=== PATIENT | female | born 1995 ===

== ENCOUNTER 2017-01-15 08:47 | Inpatient (IN) | payer MEDICAID ==
[2016-09-15 09:54] VITALS: BMI 28.6
[2017-01-16] MEDS ORDERED: Lactated Ringer's 1,000 ML IV SCH (10:00)
[2017-01-16 10:24] LABS: BASO % 0.3 % (0.0-2.0); EOS % 0.5 % (0.0-4.0); HEMATOCRIT 34.5 % (34.0-47.0); LYMPH # 1.5 K/uL (1.0-4.3); LYMPH % 18.9 % (20.0-40.0); MEAN CORPUSCULAR HEMOGLOBIN 25.4 pg (27.0-31.0); MEAN CORPUSCULAR HGB CONC 33.3 g/dL (33.0-37.0); MEAN PLATELET VOLUME 9.6 fL (7.2-11.7); MONO # 0.8 K/uL (0.0-0.8); MONO % 10.2 % (0.0-10.0); NRBC % 0.1 % (0.0-2.0); RED CELL DISTRIBUTION WIDTH 16.5 % (11.5-14.5); WHITE BLOOD COUNT 7.8 K/uL (4.8-10.8)
[2017-01-16 10:25] LABS: MEAN CELL VOLUME 76.3 fL (81.0-99.0)
[2017-01-16 10:41] LABS: CHLORIDE 107 mmol/L (98-107); POTASSIUM 3.4 mmol/L (3.6-5.2); SODIUM 135 mmol/L (132-148)
[2017-01-16 10:44] LABS: ALB/GLOB RATIO 0.9 (1.0-2.1); ALKALINE PHOSPHATASE 248 U/L (38-126); ALT/SGPT 32 U/L (9-52); AST/SGOT 20 U/L (14-36); BILIRUBIN,TOTAL 0.4 mg/dL (0.2-1.3); BLOOD UREA NITROGEN 4 mg/dL (7-17); CARBON DIOXIDE 17 mmol/L (22-30); GFR AFRICAN-AMERICAN > 60; GLUCOSE,RANDOM 97 mg/dL (65-105); TOTAL PROTEIN 6.8 g/dL (6.3-8.3)
[2017-01-16 10:45] LABS: CALCIUM 8.5 mg/dl (8.6-10.4)
[2017-01-16 11:12] LABS: RBC URINE 1 /hpf (0-3); URINE BACTERIA FEW (<OCC); URINE BILIRUBIN NEGATIVE (NEGATIVE); URINE BLOOD NEGATIVE (NEGATIVE); URINE COLOR Yellow (YELLOW); URINE GLUCOSE (UA) NORMAL (Normal); URINE KETONE NEGATIVE (NEGATIVE); URINE LEUKOCYTE ESTERASE 2+ Leu/uL (Negative); URINE PROTEIN NEGATIVE (NEGATIVE); URINE UROBILINOGEN NORMAL mg/dL (0.2-1.0)
[2017-01-16 11:14] LABS: WBC URINE 3 /hpf (0-5)
[2017-01-16] MEDS ORDERED: Dextrose 5%/Lactated Ringer's 500 ML IV SCH (15:30)
[2017-01-16] MEDS ORDERED: Nalbuphine 20 mg/ml Inj (1 ml) ONE (16:05)
[2017-01-16] MEDS ORDERED: Nalbuphine 20 mg/ml Inj (1 ml) IVP ONE (16:15)
[2017-01-16] MEDS ORDERED: Bupivacaine HCl 0.25% PF (10 ml) Inj ONE (18:04)
[2017-01-16] MEDS ORDERED: Bupivacaine 0.125%/FentaNYL 200 ML EPI ONE (18:04)
--- NOTE | 2017-01-16 20:49 | OBADHP ---
Datetime: 01/16/2017 13:45 Weight - Estimated: 3200 Presentation-Admit: Vertex Contraction Comments Provider: irregular Gestation - Est Wks by US: 41.0 Vital Signs Provider: Reviewed; Within Normal Limits FHR Category Provider Fetus A: Category I Dilatation, Provider: ft Effacement, Provider: 50 Station, Provider: -3 Datetime: 01/16/2017 09:58 Admit Comment, IP Provider: chief complaint-post term ; induction of labor HPI 21 y/o at 41 wga here for induction of labor secondary to post dates Prenata;l course teen PMH denies PSH denies OBGYN HX Social hx denies tobacco,alcohol or illicit drug use Exam see exam section A/P 21 y/o at 41 wga here for induction of labor due to postdates -admit -see orders Pelvic Type - PN: Adequate Extremities - PN: Normal Abdomen - PN: Normal Back - PN: Normal Lungs - PN: Normal Heart - PN: Normal General - PN: Normal IP Hx Assessment: The History has been Reviewed and is Current IP Chief Complaint: Scheduled induction of labor Genitourinary Exam: Normal DTRs - PN: Normal EGA AdmitDate IP: 41.0 IP Adm Impression: Postterm, intrauterine IP Admit Plan: Admit to unit
--- NOTE | 2017-01-16 20:49 | OBPN ---
Datetime: 01/16/2017 13:45 IP Progress Impression: Reassuring heart rate IP Progress Plan: Cervical Ripening Contraction Comments Provider: irregular Gestation - Est Wks by US: 41.0 Weight - Estimated: 3200 Presentation-Admit: Vertex IP Progress Note Comment: S-patient denies any complaints o-vss afebrile FHT cat1 Doran irregular ctx sve ft/50/-3; adequate pelvis; vertex PLna-cervidil placed Vital Signs Provider: Reviewed; Within Normal Limits FHR Category Provider Fetus A: Category I Dilatation, Provider: ft Effacement, Provider: 50 Station, Provider: -3
--- NOTE | 2017-01-17 01:27 | OBPN ---
Datetime: 01/17/2017 01:22 IP Progress Impression: Reassuring heart rate IP Progress Plan: Continue present management Contraction Comments Provider: irregular FHR - Baseline A Provider: 150 IP Progress Note Comment: S-patient states that she feels some pressure O-VSS Afebrile FHT 150s, min-mod tera, +accels, occ variable Pluckemin irregular ctx sve 3/80/-1 A/P Patient being induced for postdates -cervidil removed -epidural topoff -start pitocin after topoff Vital Signs Provider: Reviewed; Within Normal Limits NICHD Accel Fetus A IP Provider: 15X15 NICHD Variability Prov Fetus A: Moderate 6-25bpm Dilatation, Provider: 3 Effacement, Provider: 80 Station, Provider: -1 NICHD Decel Fetus A IP Provider: None; Variable
[2017-01-17] MEDS ORDERED: Bupivacaine HCl 0.25% PF (10 ml) Inj ONE ×2 (01:39→07:56)
[2017-01-17] MEDS ORDERED: Oxytocin 30 UNIT 30 UNITS/500 ML BAG IV PRN (04:00)
[2017-01-17] MEDS ORDERED: Oxytocin 30 UNIT 30 UNITS/500 ML BAG IV ONE (04:00)
[2017-01-17] MEDS ORDERED: Dextrose 5%/Lactated Ringer's 1,000 ML IV SCH (07:15)
--- NOTE | 2017-01-17 08:35 | OBPN ---
Datetime: 01/17/2017 08:09 IP Progress Plan Other: SROM IP Procedures: Sterile Vag Exam IP Progress Plan: Continue present management; Augmentation; Anesthesia consult; Anticipate Vaginal Delivery Membranes, Provider: Ruptured Amniotic Fluid Color, Provider: Bloody Contraction Comments Provider: 2-3 FHR - Baseline A Provider: 150 Gestation - Est Wks by US: 41w 1d Presentation-Admit: Vertex IP Progress Note Comment: Patient received in LDR#4 - reports returning increasing intensitity of co ntractions - S/P epidural. Cervical exam: during exam, spontaneous ROM occurred - blood -tinged. Pitocon = 8 mUnits Assessment: 21 y.o. P0, 41w 1d, S/P cervidil; making adequate progress in Stage 1 of labor. FHR t racing c/w labor. Category 1 tracing. Clinically stable. Plan: 1) Anesthesia consult 2) Anticipate vaginal delivery NICHD Accel Fetus A IP Provider: 10X10 FHR Category Provider Fetus A: Category I Dilatation, Provider: 8 Effacement, Provider: 90 Station, Provider: -2 NICHD Decel Fetus A IP Provider: Early
[2017-01-17] MEDS ORDERED: Oxytocin 10 Units/ml Inj ONE (14:44)
[2017-01-17] MEDS ORDERED: Lidocaine 2% Inj (20ml) ONE ×2 (14:46→14:52)
[2017-01-17] MEDS ORDERED: Benzocaine/Menthol 20%-0.5% Topical Spray (60 ml) TOP PRN (15:31)
[2017-01-17] MEDS ORDERED: Oxycodone/Acetaminophen 5/325 mg Tab PO PRN (15:33)
[2017-01-17] MEDS: Oxycodone/Acetaminophen 5/325 mg Tab PO PRN (16:36)
[2017-01-17] MEDS ORDERED: Oxycodone/Acetaminophen 5/325 mg Tab ONE (16:39)
[2017-01-17] MEDS ORDERED: Potassium Chloride 20 mEq ER Tab PO ONE (19:00)
[2017-01-17 19:23] LABS: BASO % 0.1 % (0.0-2.0); HEMATOCRIT 24.7 % (34.0-47.0); LYMPH # 0.8 K/uL (1.0-4.3); LYMPH % 4.1 % (20.0-40.0); MEAN CELL VOLUME 76.8 fL (81.0-99.0); MEAN CORPUSCULAR HEMOGLOBIN 25.3 pg (27.0-31.0); MEAN PLATELET VOLUME 9.4 fL (7.2-11.7); MONO # 1.3 K/uL (0.0-0.8); MONO % 6.7 % (0.0-10.0); PLATELET COUNT 139 K/uL (130-400); RED CELL DISTRIBUTION WIDTH 16.3 % (11.5-14.5)
[2017-01-17 19:26] LABS: WHITE BLOOD COUNT 19.6 K/uL (4.8-10.8)
--- NOTE | 2017-01-17 20:05 | OBDS ---
DELIVERY PERSONNEL Delivery Doctor: Jessica Son MD [employer] Operator: Willie Bliss RN Anesthesiologist: tawanda MATERNAL INFORMATION Delivery Anesthesia: Epidural Medications in Delivery: pitocin 40 Estimated Blood Loss (ml): 1500 Placenta Cultured: Yes Maternal Complications: None Provider Comments: G1 now P1 delivered a viable female via over 2nd degree vaginal lacera tion with Left sulcus tear at 14:13pm. Transverse perineii muscle was intact. The 's head was d elivered in a controlled manner. No nuchal was noted. The infant's shoulders were delivered atraumati chan. Infant's body was delivered without difficulty. Thick meconium liquor noted after delivery of body. Infant's mouth and nose were suctioned with bulb on the perineum. The cord was clamped and cut. Cord gas and cord blood were collected. The infant weighed [id number] with 'S 8 and 8. Mom and bab y are recovering in stable condition. All instrument and sponge counts were correct. Attending: Dr Son Resident: Bridget Rucker PGY-1 Attending Note: Present at and agree with documentaiton of delivery as above. Upon delivery of placenta, significa nt blood loss suspicious for possible placental abruption. Mother had the opportunity to vickers with infant, prior to be transferred to [facility]. Cord pH results not available at time of signing of this record. Laboratory personnel investigatin g LABOR SUMMARY EDC: 01/09/2017 00:00 No. Babies in Womb: 1 Attempted: No Labor Anesthesia: Epidural LABOR INFORMATION Cervical Ripening Agents: Cervidil (Annotations: cervidil removed by Dr. Michelle) Oxytocin: Induction Group B Beta Strep: Negative (Annotations: 12/13/16) Steroids Given: None Reason Steroids Not Administered: Not Applicable MEMBRANES Membranes Rupture Method: Spontaneous Rupture of Membranes: 01/17/2017 08:02 Length of Rupture (hrs): 6.18 Amniotic Fluid Color: Clear Amniotic Fluid Amount: Moderate Amniotic Fluid Odor: Normal STAGES OF LABOR Stage 3 hrs: 0 Stage 3 min: 33 VAGINAL DELIVERY Laceration Extension: Second Degree Laceration Type: Vaginal Other Laceration: left sulcus tear Laceration Repair Note: 1-0 vicryl used to reapproximate capsule of transverse perineii, 3 interupte d stitches 2-0 chromic (x2) on vaginal mucosa, running interlocking 3-0 chromic on skin, subcuticular Patient tolerated procedure well. Hemostasis assured. Initial Vag Sponge Count: 20 Final Vag Sponge Count: 20 Initial Vag Sharps Count: 4 Final Vag Sharps Count: 4 Sponge Count Correct: Yes Sharps Count Correct: Yes Count Comment: Correct BABY A INFORMATION Delivery Date/Time: 01/17/2017 14:13 Method of Delivery: Vaginal Born in Route : No : N/A Forceps: N/A Vacuum Extraction: N/A Shoulder Dystocia : No SHOULDER DYSTOCIA BABY A Delivery Date/Time: 01/17/2017 14:13 PRESENTATION/POSITION BABY A Presentation: Cephalic Cephalic Presentation: Vertex Breech Presentation: N/A PLACENTA INFORMATION BABY A Placenta Delivery Time : 01/17/2017 14:46 Placenta Method of Delivery: Spontaneous Placenta Status: Delivered SCORES BABY A Heart Rate 1 min: >100 bpm Resp Effort 1 min: Good Cry Reflex Irritability 1 min: Cough or Sneeze or Pulls Away Muscle Tone 1 min: Some Flexion of Extremities Color 1 min: Body Sun[place], Extremities Blue Resuscitation Effort 1 min: Tactile Stimulation; Oxygen SCORE 1 MIN: 8 Heart Rate 5 min: >100 bpm Resp Effort 5 min: Good Cry Reflex Irritability 5 min: Cough or Sneeze or Pulls Away Muscle Tone 5 min: Some Flexion of Extremities Color 5 min: Body Sunsites, Extremities Blue SCORE 5 MIN: 8 INFORMATION BABY A Gestational Age at Delivery: 41.0 Gestational Status: Term Outcome : Liveborn Condition : Stable Sex: Female IDENTIFICATION/MEDS BABY A ID Band Number: [id number] ID Band Location: Left Leg; Left Arm Sensor Applied: Yes Sensor Number: [id number] Sensor Location : Cord Clamp WEIGHT/LENGTH BABY A Birthweight (gms): 4130 Weight (lb): 9 Infant Weight (oz): 2 Infant Length Inches: 21.25 Length cms: 54.0 CORD INFORMATION BABY A No. Cord Vessels: 3 Nuchal Cord : N/A Cord Blood Taken: Yes Infant Suction: Mouth; Nose ASSESSMENT BABY A Complications: None Physical Findings at Delivery: Within Normal Limits Infant Respirations: Grunting Physical Therapy Assistant/ALS Called : Yes Infant Care By: dr rivera Transferred To: [facility]
[2017-01-17 20:14] LABS: NEUTROPHIL 80 % (50-75); TOTAL CELLS COUNTED 100
[2017-01-17 20:15] LABS: LARGE PLATELETS PRESENT
--- NOTE | 2017-01-17 21:46 | OBDS ---
DELIVERY PERSONNEL Delivery Doctor: Jessica Son MD Field Assembly Supervisor: Willie Bliss RN Anesthesiologist: tawanda MATERNAL INFORMATION Delivery Anesthesia: Epidural Medications in Delivery: pitocin 40 Estimated Blood Loss (ml): 1500 Placenta Cultured: Yes Maternal Complications: None Provider Comments: G1 now P1 delivered a viable female via over 2nd degree vaginal lacera tion with Left sulcus tear at 14:13pm. Transverse perineii muscle was intact. The 's head was d elivered in a controlled manner. No nuchal was noted. The infant's shoulders were delivered atraumati chan. Infant's body was delivered without difficulty. Thick meconium liquor noted after delivery of body. Infant's mouth and nose were suctioned with bulb on the perineum. The cord was clamped and cut. Cord gas and cord blood were collected. The infant weighed [id number] with 'S 8 and 8. Mom and bab y are recovering in stable condition. All instrument and sponge counts were correct. Attending: Dr Son Resident: Bridget Rucker PGY-1 Attending Note: Present at and agree with documentaiton of delivery as above. Upon delivery of placenta, significa nt blood loss suspicious for possible placental abruption. Mother had the opportunity to vickers with infant, prior to be transferred to [facility]. Cord pH results not available at time of signing of this record. Laboratory personnel ez tatum Addendum: 3 hours Cord pH 7.18; base excess-11.6 LABOR SUMMARY EDC: 01/09/2017 00:00 No. Babies in Womb: 1 Attempted: No Labor Anesthesia: Epidural LABOR INFORMATION Cervical Ripening Agents: Cervidil (Annotations: cervidil removed by Dr. Michelle) Cervical Ripening Agents: Cervidil (Annotations: Cervidil 10mg intravaginally administered by Dr.Man espinosa) Oxytocin: Induction Group B Beta Strep: Negative (Annotations: 12/13/16) Steroids Given: None Reason Steroids Not Administered: Not Applicable MEMBRANES Membranes Rupture Method: Spontaneous Rupture of Membranes: 01/17/2017 08:02 Length of Rupture (hrs): 6.18 Amniotic Fluid Color: Clear Amniotic Fluid Amount: Moderate Amniotic Fluid Odor: Normal STAGES OF LABOR Stage 3 hrs: 0 Stage 3 min: 33 VAGINAL DELIVERY Laceration Extension: Second Degree Laceration Type: Vaginal Other Laceration: left sulcus tear Laceration Repair Note: 1-0 vicryl used to reapproximate capsule of transverse perineii, 3 interupte d stitches 2-0 chromic (x2) on vaginal mucosa, running interlocking 3-0 chromic on skin, subcuticular Patient tolerated procedure well. Hemostasis assured. Initial Vag Sponge Count: 20 Final Vag Sponge Count: 20 Initial Vag Sharps Count: 4 Final Vag Sharps Count: 4 Sponge Count Correct: Yes Sharps Count Correct: Yes Count Comment: Correct BABY A INFORMATION Infant Delivery Date/Time: 01/17/2017 14:13 Method of Delivery: Vaginal Born in Route : No : N/A Forceps: N/A Vacuum Extraction: N/A Shoulder Dystocia : No SHOULDER DYSTOCIA BABY A Infant Delivery Date/Time: 01/17/2017 14:13 PRESENTATION/POSITION BABY A Presentation: Cephalic Cephalic Presentation: Vertex Breech Presentation: N/A PLACENTA INFORMATION BABY A Placenta Delivery Time : 01/17/2017 14:46 Placenta Method of Delivery: Spontaneous Placenta Status: Delivered SCORES BABY A Heart Rate 1 min: >100 bpm Resp Effort 1 min: Good Cry Reflex Irritability 1 min: Cough or Sneeze or Pulls Away Muscle Tone 1 min: Some Flexion of Extremities Color 1 min: Body [place], Extremities Blue Resuscitation Effort 1 min: Tactile Stimulation; Oxygen SCORE 1 MIN: 8 Heart Rate 5 min: >100 bpm Resp Effort 5 min: Good Cry Reflex Irritability 5 min: Cough or Sneeze or Pulls Away Muscle Tone 5 min: Some Flexion of Extremities Color 5 min: Body [place], Extremities Blue SCORE 5 MIN: 8 INFORMATION BABY A Gestational Age at Delivery: 41.0 Gestational Status: Term Outcome : Liveborn Condition : Stable Infant Sex: Female IDENTIFICATION/MEDS BABY A ID Band Number: [id number] ID Band Location: Left Leg; Left Arm Sensor Applied: Yes Sensor Number: [id number] Sensor Location : Cord Clamp WEIGHT/LENGTH BABY A Birthweight (gms): 4130 Infant Weight (lb): 9 Weight (oz): 2 Length Inches: 21.25 Infant Length cms: 54.0 CORD INFORMATION BABY A No. Cord Vessels: 3 Nuchal Cord : N/A Cord Blood Taken: Yes Infant Suction: Mouth; Nose ASSESSMENT BABY A Complications: None Physical Findings at Delivery: Within Normal Limits Infant Respirations: Grunting Lead Advisor/ALS Called : Yes Care By: dr rivera Transferred To: Nursery
[2017-01-18 08:26] LABS: BASO # 0.1 K/uL (0.0-0.2); BASO % 0.3 % (0.0-2.0); EOS % 0.3 % (0.0-4.0); LYMPH # 2.4 K/uL (1.0-4.3); LYMPH % 13.2 % (20.0-40.0); MEAN CELL VOLUME 76.3 fL (81.0-99.0); MEAN CORPUSCULAR HEMOGLOBIN 24.8 pg (27.0-31.0); MEAN CORPUSCULAR HGB CONC 32.6 g/dL (33.0-37.0); MEAN PLATELET VOLUME 9.6 fL (7.2-11.7); MONO # 1.4 K/uL (0.0-0.8); MONO % 7.9 % (0.0-10.0); RED CELL DISTRIBUTION WIDTH 15.9 % (11.5-14.5); WHITE BLOOD COUNT 17.9 K/uL (4.8-10.8)
[2017-01-18 08:51] LABS: CHLORIDE 107 mmol/L (98-107); SODIUM 133 mmol/L (132-148)
[2017-01-18 08:52] LABS: POTASSIUM 3.9 mmol/L (3.6-5.2)
[2017-01-18 08:54] LABS: ALKALINE PHOSPHATASE 183 U/L (38-126); ALT/SGPT 29 U/L (9-52); AST/SGOT 29 U/L (14-36); BILIRUBIN,TOTAL 0.6 mg/dL (0.2-1.3); BLOOD UREA NITROGEN 5 mg/dL (7-17); CALCIUM 7.9 mg/dl (8.6-10.4); CARBON DIOXIDE 17 mmol/L (22-30); GFR AFRICAN-AMERICAN > 60; GLUCOSE,RANDOM 90 mg/dL (65-105); TOTAL PROTEIN 4.6 g/dL (6.3-8.3)
[2017-01-18 15:01] LABS: BASO % 0.1 % (0.0-2.0); EOS # 0.1 K/uL (0.0-0.7); EOS % 0.4 % (0.0-4.0); HEMATOCRIT 21.4 % (34.0-47.0); MEAN CELL VOLUME 76.4 fL (81.0-99.0); MEAN CORPUSCULAR HEMOGLOBIN 25.1 pg (27.0-31.0); MEAN CORPUSCULAR HGB CONC 32.9 g/dL (33.0-37.0); MEAN PLATELET VOLUME 9.8 fL (7.2-11.7); MONO # 1.3 K/uL (0.0-0.8); MONO % 8.2 % (0.0-10.0); RED CELL DISTRIBUTION WIDTH 16.3 % (11.5-14.5); WHITE BLOOD COUNT 15.3 K/uL (4.8-10.8)
[2017-01-18 16:01] VITALS: PULSE 100
--- NOTE | 2017-01-18 21:01 | OBPPN ---
Datetime: 01/18/2017 07:09 PP Pain Prov: Within normal limits PP Nausea Prov: Denies PP Flatus Prov: Yes PP BM Prov: No PP Lungs Prov: Normal PP Abdomen/Uterus Prov: Normal PP Lochia Prov: Normal PP CVA Tenderness Prov: Normal PP Extremities Prov: Normal PP C/S Incision Prov: Not Applicable PP Progress Prov: Normal PP Impression Prov: Normal progression PP Plan Prov: Continue present management PP Progress Note Prov: Patient seen and examined at bedside. Per nursing no acute events overnight. Patient is doing well, pain is controlled. Lochia is mild. Patient is ambulating and tolerating diet. Urinating without difficulty. Passing flatus, no BM. Denies headache, dizziness, cp, palpitations, s ob, urinary symptoms. Patient is breast pumping. VS: BP 103/56 HR 104 Temp 98.1 Gen: AAOx3 CV: Tachycardic, regular rhythm Lungs: CTA B/L Abd: Soft, appropriately tender, fundus firm above umbilicus Ext: No clubbing, cyanosis, edema; no calf tenderness Labs: 7.8>11.5/34.5<149 19.6>8.2/24.2<139 F/U am CBC O positive Rubella Immune A/P: 21 yo at 41w1d s/p with 2nd degree vaginal laceration with posterior L sulcus te ar PPD#1 1. Stable, afebrile 2. Pain control - tylenol and motrin prn 3. F/U AM CBC 4. Acute Blood loss anemia - Ferrous sulfate 325mg TID 5. Hypokalemia K+ 3.4 on admission, potassium repleted, f/u am CMP 6. Encourage ambulation and hydration 7. Encourage breast pumping 8. Continue routine post care 9. Anticipate d/c home tomorrow 10. Plan d/w attending Bridget Rucker DO, PGY-1 [place],agree with resident exam, assessment and plan Vital Signs Provider PP: Reviewed Vital Signs Provider Details PP: heart rate elevated
[2017-01-18] MEDS: Oxycodone/Acetaminophen 5/325 mg Tab PO PRN (22:13)
[2017-01-19 07:38] LABS: BASO % 0.3 % (0.0-2.0); EOS # 0.1 K/uL (0.0-0.7); EOS % 1.2 % (0.0-4.0); HEMATOCRIT 22.6 % (34.0-47.0); LYMPH # 2.6 K/uL (1.0-4.3); LYMPH % 20.8 % (20.0-40.0); MEAN CELL VOLUME 77.2 fL (81.0-99.0); MEAN CORPUSCULAR HGB CONC 32.4 g/dL (33.0-37.0); MEAN PLATELET VOLUME 9.8 fL (7.2-11.7); MONO % 8.2 % (0.0-10.0); RED CELL DISTRIBUTION WIDTH 16.5 % (11.5-14.5); WHITE BLOOD COUNT 12.6 K/uL (4.8-10.8)
[2017-01-19] MEDS ORDERED: Influenza Vaccine 60 mcg/0.5 mL SYR (4YR UP) IM ONE ×2 (08:05→09:30)
[2017-01-19 08:40] VITALS: RESP 18
[2017-01-19] MEDS: Oxycodone/Acetaminophen 5/325 mg Tab PO PRN (17:24)
[2017-01-19 21:44] VITALS: BP 117/72; TEMP 98; O2SAT 100
== END 2017-01-19 17:43 | disposition home or self-care (01) | DRG 372 ==
LOC: C.4D 01-16 09:10 → C.4M 01-17 16:15
PROVIDERS: ADMIT Student in an Organized Health Care Education/Training Program; ATTEND Student in an Organized Health Care Education/Training Program
PROC: 3E0P7VZ Introduction of Hormone into Female Reproductive, Via Natural or Artificial Opening (ICD-10-PCS; principal; 2017-01-16)
PROC: 10E0XZZ Delivery of Products of Conception, External Approach (ICD-10-PCS; 2017-01-17)
PROC: 0KQM0ZZ Repair Perineum Muscle, Open Approach (ICD-10-PCS; 2017-01-17)
DX: O48.0 Post-term pregnancy (principal); O45.93 Premature separation of placenta, unspecified, third trimester; D62 Acute posthemorrhagic anemia; E87.6 Hypokalemia; O99.02 Anemia complicating childbirth; Z37.0 Single live birth; O70.1 Second degree perineal laceration during delivery; O77.0 Labor and delivery complicated by meconium in amniotic fluid; O99.284 Endocrine, nutritional and metabolic diseases complicating childbirth; Z3A.41 41 weeks gestation of pregnancy

== ENCOUNTER 2017-09-21 14:34 | Emergency (ER) | payer MEDICAID, OTHER ==
[2017-09-21 14:35] VITALS: BMI 28.6
[2017-09-21 14:46] VITALS: TEMP 97.8
--- NOTE | 2017-09-21 15:40 | C.PDOC ---
History Of Present Illness Patient is a 21 y/o female patient presenting to the ER complaining of intermittent headache for the past 3 days. headache lasts about 30 minutes, comes several times a day with gradual onset. Associated symptoms to the headache (pain on top and front of head) include stiffness, weakness and tremors in her hands with a transient backward type positioning of arms, tremors and one episode of vomiting yesterday. Patient denies any fever, nausea , trauma/injuries, visual changes, or stiff neck. pt has no headache at this times, last was earlier today. headaches resolves spontaneously. Time Seen by Provider: 09/21/17 14:49 Chief Complaint (Nursing): Headache History Per: Patient History/Exam Limitations: no limitations Onset/Duration Of Symptoms: Days Current Symptoms Are (Timing): Still Present Associated Symptoms: Vomiting, Extremity Weakness. denies: Photophobia, Nausea Past Medical History Reviewed: Historical Data, Nursing Documentation, Vital Signs Vital Signs: Last Vital Signs Temp 97.8 F 09/21/17 14:42 Pulse 78 09/21/17 18:03 Resp 16 09/21/17 18:03 BP 123/68 09/21/17 18:03 Pulse Ox 97 09/23/17 22:23 - Medical History PMH: No Chronic Diseases Denies: Depression, Diabetes, HTN Surgical History: No Surg Hx - [facility] Procedures (01/16/17) DELIVERY OF PRODUCTS OF CONCEPTION, EXTERNAL APPROACH (01/16/17) INTRODUCTION OF SERUM/TOX/VACCINE INTO MUSCLE, PERC APPROACH (01/16/17) REPAIR PERINEUM MUSCLE, OPEN APPROACH (01/16/17) Family History: States: No Known Family Hx - Social History Hx Alcohol Use: No Hx Substance Use: No - Immunization History Hx Tetanus Toxoid Vaccination: No Hx Influenza Vaccination: Yes Hx Pneumococcal Vaccination: No Review Of Systems Constitutional: Negative for: Fever, Chills Eyes: Negative for: Vision Change Gastrointestinal: Positive for: Vomiting. Negative for: Nausea Musculoskeletal: Negative for: Neck Pain Neurological: Positive for: Weakness, Headache Physical Exam - Physical Exam Appears: Non-toxic, No Acute Distress Skin: Normal Color, Warm, Dry Head: Atraumatic, Normacephalic Eye(s): bilateral: Normal Inspection (no nystagmus), EOMI Ear(s): Bilateral: Normal Nose: Normal Oral Mucosa: Moist Tongue: Normal Appearing Lips: Normal Appearing Teeth: Normal Dentition Gingiva: Normal Appearing Throat: Normal, No Erythema, No Exudate Neck: Normal ROM, Supple, Other (no meningeal signs) Chest: Symmetrical Cardiovascular: Rhythm Regular, No Murmur Respiratory: Normal Breath Sounds, No Rales, No Rhonchi, No Wheezing Gastrointestinal/Abdominal: Soft, No Tenderness Extremity: Normal ROM Pulses: Left Radial: Normal, Right Radial: Normal Neurological/Psych: Oriented x3, Normal Speech, Normal Cognition, Normal Cranial Nerves, No Cerebellar Signs, Normal Motor, Normal Sensation, Other ( normal finger-nose, minh, steady gait, able to toe, heel walk. ) Gait: Steady ED Course And Treatment - Laboratory Results Result Diagrams: 09/21/17 15:57 09/21/17 15:57 Urine POC: Negative O2 Sat by Pulse Oximetry: 97 (RA) - CT Scan/US Head Other Rad Studies (CT/US): Read By Radiologist, Radiology Report Reviewed CT/US Interpretation: FINDINGS: HEMORRHAGE: No intracranial hemorrhage seen. BRAIN: No mass effect or edema. No atrophy or chronic microvascular ischemic changes. VENTRICLES: Unremarkable. No hydrocephalus. CALVARIUM: Intact. PARANASAL SINUSES: Small amount of secretions in the right sphenoid sinus. Remainder of the visualized paranasal sinuses are clear. MASTOID AIR CELLS: Visualized mastoid air cells are clear. OTHER FINDINGS: None. IMPRESSION: No mass, hemorrhage, or acute infarct identified. Mild right sphenoid sinus disease as above. Correlate clinically for acute sinusitis. Progress Note: Urine Preg Test ordered. Medical Decision Making Medical Decision Making: pt with intermittent gradual onset headache with unusual associated arm stiffness for 3 days, labs normal, no acute findings on ct, pt without headache at this time. d/c home with clinic and neuro f/u. pt advised to keep diary when she gets headaches. pt agrees with plan. Disposition Counseled Patient/Family Regarding: Studies Performed, Diagnosis, Need For Followup, Rx Given - Disposition Referrals: [facility] [Outside] Phillip Rutledge MD [Staff Provider] - Disposition: HOME/ ROUTINE Disposition Time: 17:53 Condition: GOOD Additional Instructions: Jw el seguimiento en la clnica mdica lo antes posible y tambin con el Dr. Rutledge (neurlogo). Lleve un diario de cundo tiene shannan de alessandro, incluyendo cunto tiempo saucedo ms, circunstancias que ocurren alrededor de un dolor de alessandro, etc. [place] Tylenol para el dolor si es necesario. Regrese a la alethea de emergencias por cualquier empeoramiento de los sntomas. Instructions: Headache, Adult (DC) Forms: Gen Discharge Inst [place], [employer] ([place]) Print Language: GERMAN - Clinical Impression Clinical Impression: Headache - PA / FACILITY ENGINEER / Resident Statement MD/DO has reviewed & agrees with the documentation as recorded. - Scribe Statement The provider has reviewed the documentation as recorded by the Becky Randolph All medical record entries made by the Nikkieibe were at my direction and personally dictated by me. I have reviewed the chart and agree that the record accurately reflects my personal performance of the history, physical exam, medical decision making, and the department course for this patient. I have also personally directed, reviewed, and agree with the discharge instructions and disposition.
[2017-09-21 16:02] LABS: BASO % 0.5 % (0.0-2.0); EOS % 0.2 % (0.0-4.0); HEMOGLOBIN 12.7 g/dL (11.0-16.0); LYMPH # 2.3 K/uL (1.0-4.3); LYMPH % 25.7 % (20.0-40.0); MEAN CORPUSCULAR HEMOGLOBIN 25.7 pg (27.0-31.0); MEAN PLATELET VOLUME 8.9 fL (7.2-11.7); MONO # 0.7 K/uL (0.0-0.8); MONO % 7.5 % (0.0-10.0); NEUT # 5.8 K/uL (1.8-7.0); NEUT % 66.1 % (50.0-75.0); NRBC % 0.1 % (0.0-2.0); RBC 4.93 Mil/uL (3.80-5.20); RED CELL DISTRIBUTION WIDTH 14.8 % (11.5-14.5); WHITE BLOOD COUNT 8.8 K/uL (4.8-10.8)
[2017-09-21 16:13] LABS: ALB/GLOB RATIO 1.3 (1.0-2.1); ALBUMIN 4.7 g/dL (3.5-5.0); ALT/SGPT 36 U/L (9-52); AST/SGOT 27 U/L (14-36); BLOOD UREA NITROGEN 9 mg/dL (7-17); CALCIUM 8.9 mg/dl (8.6-10.4); GFR AFRICAN-AMERICAN > 60; GFR NON-AFRICAN AMERICAN > 60
--- NOTE | 2017-09-21 17:19 | CT ---
PROCEDURE: CT HEAD WITHOUT CONTRAST HISTORY: hadache with arm posturing COMPARISON: None available. TECHNIQUE: Axial computed tomography images were obtained through the head/brain without intravenous contrast. Coronal and sagittal reconstructions were also acquired. Radiation dose: Total exam DLP = 774 mGy-cm. FINDINGS: HEMORRHAGE: No intracranial hemorrhage seen. BRAIN: No mass effect or edema. No atrophy or chronic microvascular ischemic changes. VENTRICLES: Unremarkable. No hydrocephalus. CALVARIUM: Intact PARANASAL SINUSES: Small amount of secretions in the right sphenoid sinus. Remainder of the visualized paranasal sinuses are clear. MASTOID AIR CELLS: Visualized mastoid air cells are clear. OTHER FINDINGS: None. IMPRESSION: No mass, hemorrhage, or acute infarct identified. Mild right sphenoid sinus disease as above. Correlate clinically for acute sinusitis.
[2017-09-21 18:04] VITALS: BP 123/68; PULSE 78; RESP 16
[2017-09-21 22:06] VITALS: O2SAT 97
== END 2017-09-21 18:03 | disposition home or self-care (01) ==
LOC: C.ER 14:34
DX: R51 Headache (principal)

== ENCOUNTER 2017-10-05 14:13 | Inpatient (IN) | payer MEDICAID, OTHER ==
[2017-10-05 14:14] VITALS: BMI 28.6
[2017-10-05 15:08] LABS: BASO % 0.5 % (0.0-2.0); EOS % 0.3 % (0.0-4.0); HEMOGLOBIN 12.6 g/dL (11.0-16.0); LYMPH # 2.2 K/uL (1.0-4.3); LYMPH % 30.8 % (20.0-40.0); MEAN CORPUSCULAR HEMOGLOBIN 26.4 pg (27.0-31.0); MEAN CORPUSCULAR HGB CONC 33.4 g/dL (33.0-37.0); MEAN PLATELET VOLUME 9.2 fL (7.2-11.7); MONO # 0.5 K/uL (0.0-0.8); MONO % 7.3 % (0.0-10.0); NEUT # 4.3 K/uL (1.8-7.0); NEUT % 61.1 % (50.0-75.0); NRBC % 0.1 % (0.0-2.0); RBC 4.76 Mil/uL (3.80-5.20); RED CELL DISTRIBUTION WIDTH 14.8 % (11.5-14.5); WHITE BLOOD COUNT 7.1 K/uL (4.8-10.8)
[2017-10-05 15:22] LABS: ALB/GLOB RATIO 1.5 (1.0-2.1); ALBUMIN 4.7 g/dL (3.5-5.0); ALT/SGPT 33 U/L (9-52); AST/SGOT 30 U/L (14-36); BLOOD UREA NITROGEN 10 mg/dL (7-17); GFR AFRICAN-AMERICAN > 60; GFR NON-AFRICAN AMERICAN > 60
[2017-10-05 15:23] LABS: SQUAMOUS EPITHIAL 1 /hpf (0-5); URINE BACTERIA RARE (<OCC); URINE BILIRUBIN NEGATIVE (NEGATIVE); URINE BLOOD NEGATIVE (NEGATIVE); URINE CLARITY Hazy (Clear); URINE COLOR Yellow (YELLOW); URINE GLUCOSE (UA) NORMAL (Normal); URINE LEUKOCYTE ESTERASE 3+ Leu/uL (Negative); URINE PROTEIN NEGATIVE (NEGATIVE); URINE UROBILINOGEN NORMAL mg/dL (0.2-1.0)
--- NOTE | 2017-10-05 15:30 | C.PDOC ---
History Of Present Illness 21yo female, with no prior psychiatric history, comes to ER from [facility] stating she is scared and she has homicidal ideation. PAtient states 2 weeks ago, her 8 month old baby almost choked on a rubber band and since then, she has had thoughts of hurting her child with a knife. Patient also states she has thoughts of hurting her brother when he visits. She reports feeling lonely as well. Otherwise, patient denies any fever, chills, shortness of breath, chest pain, abdominal pain, and offers no other medical complaints. Time Seen by Provider: 10/05/17 14:26 Chief Complaint (Nursing): Psychiatric Evaluation History Per: Patient History/Exam Limitations: no limitations Onset/Duration Of Symptoms: Days Current Symptoms Are (Timing): Still Present Associated Symptoms: Depression. denies: Suicidal Thoughts Past Medical History Reviewed: Historical Data, Nursing Documentation, Vital Signs Vital Signs: Last Vital Signs Temp 98 F 10/05/17 17:20 Pulse 76 10/05/17 17:20 Resp 18 10/05/17 17:20 BP 126/73 10/05/17 17:20 Pulse Ox 98 10/05/17 18:17 - Medical History PMH: Denies: Depression, Diabetes, HTN Surgical History: No Surg Hx - [facility] Procedures (01/16/17) DELIVERY OF PRODUCTS OF CONCEPTION, EXTERNAL APPROACH (01/16/17) INTRODUCTION OF SERUM/TOX/VACCINE INTO MUSCLE, PERC APPROACH (01/16/17) REPAIR PERINEUM MUSCLE, OPEN APPROACH (01/16/17) Family History: States: No Known Family Hx - Social History Hx Alcohol Use: No Hx Substance Use: No - Immunization History Hx Tetanus Toxoid Vaccination: No Hx Influenza Vaccination: Yes Hx Pneumococcal Vaccination: No Review Of Systems Constitutional: Negative for: Fever, Chills Cardiovascular: Negative for: Chest Pain Respiratory: Negative for: Shortness of Breath Gastrointestinal: Negative for: Abdominal Pain Psych: Positive for: Depression, Other (homicidal ideation) Physical Exam - Physical Exam Appears: Non-toxic, No Acute Distress Skin: Warm, Dry Head: Atraumatic, Normacephalic Eye(s): bilateral: Normal Inspection Neck: Normal ROM, Supple Chest: Symmetrical Cardiovascular: Rhythm Regular Respiratory: Normal Breath Sounds, No Wheezing Gastrointestinal/Abdominal: Soft, No Tenderness, No Guarding, No Rebound Back: No CVA Tenderness Extremity: Normal ROM Neurological/Psych: Oriented x3, Normal Speech, Normal Cognition, Normal Motor, Normal Sensation ED Course And Treatment - Laboratory Results Result Diagrams: 10/05/17 15:04 10/05/17 15:04 O2 Sat by Pulse Oximetry: 98 (RA) Pulse Ox Interpretation: Normal Medical Decision Making Medical Decision Making: Impression: Auditory hallucinations Plan: --Labs --UA --UDS --Crisis evaluation 1646 discussed with crisis. pt to be admitted to Dr Murray. pt's urine with wbc and le, with no symptoms. will obtain urine culture and recommend f/u culture for determination if pt needs antibiotics. 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 - Scribe Statement The provider has reviewed the documentation as recorded by the Becky Arshad Provider Attestation: All medical record entries made by the Becky were at my direction and personally dictated by me. I have reviewed the chart and agree that the record accurately reflects my personal performance of the history, physical exam, medical decision making, and the department course for this patient. I have also personally directed, reviewed, and agree with the discharge instructions and disposition.
[2017-10-05 15:47] LABS: BARBITURATES, UR NEGATIVE (NEGATIVE); BENZODIAZEPINES, UR NEGATIVE (NEGATIVE); OPIATES, UR NEGATIVE (NEGATIVE); PHENCYCLIDINE, UR NEGATIVE (NEGATIVE)
[2017-10-05 16:50] VITALS: O2SAT 98
--- NOTE | 2017-10-05 17:36 | PCM.BM ---
<Florecita Weston - Last Filed: 10/05/17 17:34> Treatment Plan Problems - Problems identified on initial assessmt Depression Date Initiated: 10/05/17 Time Initiated: 17:34 Assessment reference: NA Status: Active Treatment assets and liabiliti Patient Assests: adapts well, cooperative, educated, ADL independent, physically healthy, negotiates basic needs, cognitively intact Patient Liabilities: substance abuse (None), medical problems (None), language/ speech (Romansh speaking) - Milieu Protocol Maintain good personal hygiene: daily Encourage regular showers, daily Remind patient to perform daily oral care, daily Assist patient to perform ADL's (Self) Conduct patient checks and document Observation sheet: Q15 minutes (Safety) Maintain personal safety: every shift Educate patient to report safety concerns to staff, every shift Monitor environment for contraband/sharps Medication safety: Monitor for expected outcome, potential side effects: every shift, Assess barriers to learning: every shift, Assess readiness for medication education: every shift <Vishnu Murray - Last Filed: 10/08/17 11:15> - Diagnosis (1) Major depressive disorder with psychotic features Status: Acute Interventions: 10/08/17 11:15 * Assess/adjust medications daily and /or as needed * See patient on an individual basis 7x/week to assess symptoms of depression * Monitor for side effects & effectiveness of medications * <Leah Martinez - Last Filed: 10/08/17 13:51> Family Contact Family involvement: Family/SO is involved Family contact: Patient agrees to contact Family contact name: Paco Tatum- - Goals for Treatment Patient goals for treatment: "I want to go home to my baby." Discharge/Continuing Care - Education Needs Education Needs: Patient Medication, Patient Coping Skills - Discharge Discharge Criteria: Tolerates medication w/o severe side effects, Free of Homicidal thoughts Discharge to:: Home, With Family - Treatment Team Participation Discussed with Family/SO: No Was Patient/Family/SO present at Treatment Team Meeting: Yes
--- NOTE | 2017-10-06 06:13 | PCM.PSYCH ---
Initial Psychiatric Evaluation - Initial Psychiatric Evaluation Type of Admission: Voluntary Legal Status: Capacity Chief Complaint (in patient's own words): I was hearing voices. History of Present Illness and Precipitating Events: Pt is a 21 years old female, who presented in the ED complaining of auditory hallucinations and homicidal ideations towards her 8-month old daughter. Pt denies any past history of any inpatient psychiatric hospitalizations and denies any history of follow up with any psychiatrist. Pt reported increased thoughts of anger and homicidal intentions. pt made mentioned of visualizing knives and scissors in her hands and becoming hysterical. Yesterday pt decided to present in the ED and request psychiatric assistance as to avoid harm to herself and infant daughter. Pt reported feeling not herself for months after the of her first child. Pt is not engaged in psychiatric treatment, does not have a PCP and has not followed-up with her OB-CAKE PUNCHER in months. Pt at time of contact appeared afraid, anxious and despaired at the thought of harming her immediate family. Pt is and has been in the [place] for the last two years; pt's current support system consists of her and father who are not aware of patient's current mood and behavioral disturbances. Pt is receptive to disclosure and provided verbal consent to obtain collateral information from her significant other who was not available at time of contact and assessment. Pt appeared to be in severe psychiatric distress and can benefit from inpatient psychiatric treatment. Pt continued to present with severe anxiety, current internal preoccupation of and ongoing mood disturbances that have negatively impacted patient's ability to function at her normal baseline. PMH None reported Past Psychiatric History - Past Psychiatric History Previous Treatment History: None Pertinent Medical Hx (Current Medical&Sleep Prob, Allergies): Allergies Allergy/AdvReac Type Severity Reaction Status Date / Time No Known Allergies Allergy Verified 09/21/17 14:46 Docusate [Colace] 100 mg PO BID #60 cap 01/19/17 Ferrous Sulfate [Feosol] 325 mg PO TID #90 tab 01/19/17 Ibuprofen [Motrin Tab] 600 mg PO Q6 PRN #30 tab 01/19/17 Review of Systems - Review of Systems All systems: reviewed and no additional remarkable complaints except - Psychiatric Psychiatric: Anxiety, Auditory Hallucinations, Homicidal Ideation, Irritability Mental Status Examination - Personal Presentation Personal Presentation: Looks stated age - Affect Affect: Constricted, Depressed - Motor Activity Motor Activity: Calm - Reliability in Providing Information Reliability in Providing Information: Fair, Poor, due to altered mood - Speech Speech: Organized - Mood Mood: Depressed, Anxious - Formal Thought Process Formal Thought Process: Hallucinations - Hallucinations/Delusions Hallucinations: Auditory - Obsessions/Compulsions Obsessions: No Compulsions: No - Cognitive Functions Orientation: Person, Place, Situation, Time Sensorium: Alert Attention/Concentration: Attentive Abstract Thinking: Nolan Estimate of Intelligence: Below average Judgement: Imparied, as evidence by: Poor judgement, Imparied, as evidence by: Lack of insight into illness - Risk Risk: Homicidal, Diminished functioning - Limitations Limitations: Living alone DSM 5 DX - DSM 5 DSM 5 Diagnosis: Major depressive disorder single episode sever with psychotic features - Recommended/Plan of Treatment Treatment Recommendations and Plan of Treatment: Major depressive disorder single episode sever with psychotic features -CBT -Psychoeducation -Supportive therapy, group therapy -Zoloft 50 mg by mouth daily -Hydroxyzine 25 mg prn - Smoking Cessation Smoking Cessation Initiated: No
--- NOTE | 2017-10-07 23:51 | PCM.PYCHPN ---
Psychiatric Progress Note - Psychiatric Progress Note Patient seen today, length of contact: 15 min Patient Chief Complaint: I was hearing voices. Problems Identified/Issues Discussed: Patient seen and evaluated, chart reviewed and discussed with the nurse. Pt reports depressed mood, and poor sleep. She remained isolated and withdrawn, and confined to her room. Patient is compliant with medications and denies any side effects. Symptoms are improving but need more time to stabilize. Support and psychoeducation given. Medication Change: Yes Medical Record Reviewed: Yes Mental Status Examination - Cognitive Function Orientation: Person, Place, Situation, Time Memory: Intact Attention: WNL Concentration: Poor Association: Loose Fund of Knowledge: WNL - Mood Mood: Depressed, Anxious - Affect Affect: Constricted, Depressed - Speech Speech: Soft - Formal Thought Process Formal Thought Process: Hallucinations - Suicidal Ideation Suicidal Ideation: No - Homicidal Ideation Homicidal Ideation: No Goal/Treatment Plan - Goal/Treatment Plan Need for Continued Stay: Severe depression anxiety, Severe functional impairment Progress Toward Problem(s) and Goals/Treatment Plan: Major depressive disorder single episode sever with psychotic features -CBT -Psychoeducation -Supportive therapy, group therapy -Zoloft 50 mg by mouth daily -Hydroxyzine 25 mg prn - Smoking Cessation Smoking Cessation Initiated: No
[2017-10-09 10:26] VITALS: RESP 20
--- NOTE | 2017-10-09 14:26 | PCM.PYCHPN ---
Psychiatric Progress Note - Psychiatric Progress Note Patient seen today, length of contact: 15 Minutes Patient Chief Complaint: I am feeling much better. When can I go home. Problems Identified/Issues Discussed: Patient seen, chart reviewed, case discussed with the staff. Issues related to illness and treatment were discussed with the patient and staff. Reported compliant with treatment with no adverse affects. Tolerating treatment very well. Patient reported feeling better. Calm and cooperative with good eye contact. Aftercare discussed with the patient. Awake alert oriented 3, no delusions, no auditory or visual hallucination, nose suicidal ideation or homicidal ideation at time of evaluation. Medical Problems: None reported Diagnostic Results: Review DSM 5 Symptoms Update: Improving with treatment Medication Change: No Medical Record Reviewed: Yes Mental Status Examination - Cognitive Function Orientation: Person, Place, Situation, Time Memory: Intact Attention: WNL Concentration: WNL Association: WNL Fund of Knowledge: [facility] Decription of patient's judgement and insights: Fair - Mood Mood: Neutral - Affect Affect: Other (Appropriate) - Speech Speech: Appropriate - Formal Thought Process Formal Thought Process: No Impairment Psychotic Thoughts and Behaviors: None - Suicidal Ideation Suicidal Ideation: No - Homicidal Ideation Homicidal Ideation: No Goal/Treatment Plan - Goal/Treatment Plan Need for Continued Stay: Remain at risks for inpatient hospitalization, Discharge may exacerbated symptoms, Severe functional impairment Progress Toward Problem(s) and Goals/Treatment Plan: Improving. Patient education. Supportive therapy. Continue treatment as before. Patient reports to [facility] for follow-up care after discharge from the hospital. Estimated Date of D/C: 10/11/17 - Smoking Cessation Smoking Cessation Initiated: No
--- NOTE | 2017-10-10 23:28 | PCM.PYCHPN ---
Psychiatric Progress Note - Psychiatric Progress Note Patient seen today, length of contact: 15 Minutes Patient Chief Complaint: I am feeling much better. When can I go home. Problems Identified/Issues Discussed: Patient seen, chart reviewed, case discussed with the staff. Issues related to illness and treatment were discussed with the patient and staff. Reported compliant with treatment with no adverse affects. Tolerating treatment very well. Patient reported feeling better. Calm and cooperative with good eye contact. Aftercare discussed with the patient. Awake alert oriented 3, no delusions, no auditory or visual hallucination, nose suicidal ideation or homicidal ideation at time of evaluation. Medical Problems: None reported Diagnostic Results: Review DSM 5 Symptoms Update: Improving with treatment. Medication Change: No Medical Record Reviewed: Yes Mental Status Examination - Cognitive Function Orientation: Person, Place, Situation, Time Memory: Intact Attention: WNL Concentration: WNL Association: WNL Fund of Knowledge: WN Decription of patient's judgement and insights: Fair - Mood Mood: Neutral - Affect Affect: Other (Appropriate) - Speech Speech: Appropriate - Formal Thought Process Formal Thought Process: No Impairment Psychotic Thoughts and Behaviors: None - Suicidal Ideation Suicidal Ideation: No - Homicidal Ideation Homicidal Ideation: No Goal/Treatment Plan - Goal/Treatment Plan Need for Continued Stay: Remain at risks for inpatient hospitalization, Discharge may exacerbated symptoms, Severe functional impairment Progress Toward Problem(s) and Goals/Treatment Plan: Improving. Patient education. Supportive therapy. Continue treatment as before. Patient reports to [facility] for follow-up care after discharge from the hospital. Estimated Date of D/C: 10/11/17 - Smoking Cessation Smoking Cessation Initiated: No
[2017-10-11 06:42] VITALS: BP 100/77; PULSE 106; TEMP 98.1
--- NOTE | 2017-10-11 23:19 | PCM.PYCHDC ---
Mental Status Examination - Mental Status Examination Orientation: Person, Place, Situation, Time Memory: Intact Mood: Neutral Affect: Other (Appropriate) Speech: Appropriate Attention: WNL Concentration: WNL Association: WNL Fund of Knowledge: WNL Formal Thought Process: No Impairment Description of patient's judgement and insight: Fair Psychotic Thoughts and Behaviors: None Suicidal Ideation: No Current Homicidal Ideation?: No Discharge Summary - Discharge Note Reason for Hospitalization: Major depressive disorder single episode severe without psychotic features. Laboratory Data: Reviewed Consultations:: List each consultation separately and include: 1. Reason for request. 2. Findings. 3. Follow-up Summary of Hospital Course include:: 1. Description of specific treatment plan utilized for patients during their course of treatmen. 2. Summarize the time- course for resolution of acute symptoms and/or regressed behaviors. 3. Describe issues identified and worked on during hospitalization. 4. Describe medication utilized. 5. Describe medical problems identified and treated. 6. Reassessment of suicide risk Summary of Hospital Course: Pt is a 21 years old female, who presented in the ED complaining of auditory hallucinations and homicidal ideations towards her 8-month old daughter. Pt denies any past history of any inpatient psychiatric hospitalizations and denies any history of follow up with any psychiatrist. Pt reported increased thoughts of anger and homicidal intentions. pt made mentioned of visualizing knives and scissors in her hands and becoming hysterical. Yesterday pt decided to present in the ED and request psychiatric assistance as to avoid harm to herself and daughter. Pt reported feeling not herself for months after the of her first child. Pt is not engaged in psychiatric treatment, does not have a PCP and has not followed-up with her OB-HEALTH INFORMATION TECHNICIAN in months. Pt at time of contact appeared afraid, anxious and despaired at the thought of harming her immediate family. Pt is and has been in the [place] for the last two years; pt's current support system consists of her and father who are not aware of patient's current mood and behavioral disturbances. Pt is receptive to disclosure and provided verbal consent to obtain collateral information from her significant other who was not available at time of contact and assessment. Pt appeared to be in severe psychiatric distress and can benefit from inpatient psychiatric treatment. Pt continued to present with severe anxiety, current internal preoccupation of and ongoing mood disturbances that have negatively impacted patient's ability to function at her normal baseline. During her stay in the hospital patient was treated with sertraline and trazodone. Patient was attending groups also. With the above treatment patient started feeling better. Today patient was very stable and was ready for discharge from the hospital. At the time of evaluation and discharge, patient was awake alert oriented 3, had no delusions, no auditory or visual hallucinations, no suicidal ideations or homicidal ideations. Patient was discharged in a stable condition. - Final Diagnosis (DSM 5) Condition upon Discharge: FAIR Disposition: HOME/ ROUTINE Follow-up Treatment Plan: Patient reports to [facility] (formerly [facility]) for follow-up care after discharge from the hospital. Prescriptions/Medication Reconciliation: Sertraline [Zoloft] 50 mg PO DAILY #30 tab traZODone [Desyrel] 50 mg PO HS #30 tab - Smoking Cessation Smoking Cessation Medication prescribed: No - Antipsychotic Medications Pt discharged on 2 or more routine antipsychotic medications: No
== END 2017-10-11 11:10 | disposition home or self-care (01) | DRG 885 ==
LOC: C.ER 14:13 → C.5E 16:51
PROVIDERS: ADMIT Psychiatry & Neurology Psychiatry; ATTEND Psychiatry & Neurology Psychiatry
PROC: GZHZZZZ Group Psychotherapy (ICD-10-PCS; principal; 2017-10-05)
PROC: GZ58ZZZ Individual Psychotherapy, Cognitive-Behavioral (ICD-10-PCS; 2017-10-05)
PROC: GZ56ZZZ Individual Psychotherapy, Supportive (ICD-10-PCS; 2017-10-05)
DX: F32.3 Major depressive disorder, single episode, severe with psychotic features (principal); R45.850 Homicidal ideations; F41.8 Other specified anxiety disorders